=== PATIENT | male | born 1970 | race Caucasian/White ===

== ENCOUNTER → 2018-06-08 09:00 | Outpatient (CLI) | payer OTHER ==
[~2018-06-08 09:00] MED LIST: ALLOPURINOL300 MG PO; ATARAX10 MG; PRILOSEC PO; ZANTAC300 MG PO
== END | disposition home or self-care (01) ==
LOC: EKG 09:00 → EDSTATUS 06-14 12:00 → SURH 06-14 12:00 → EKG 07-09 09:00
DX: R59.0 Localized enlarged lymph nodes (principal); R10.12 Left upper quadrant pain; C81.03 Nodular lymphocyte predominant Hodgkin lymphoma, intra-abdominal lymph nodes; Z01.810 Encounter for preprocedural cardiovascular examination

== ENCOUNTER → 2018-06-13 | Emergency (ER) | payer OTHER ==
[~2018-06-13] VITALS: Ht 180.3 cm; Wt 72.6 kg
== END | disposition home or self-care (01) ==
LOC: ER 23:01
DX: T78.49XA Other allergy, initial encounter (principal); R21 Rash and other nonspecific skin eruption